=== PATIENT | male | born 1955 | race Caucasian/White ===

== ENCOUNTER 2020-10-13 12:50 | Emergency (ER) | payer MEDICAID, MEDICARE ==
[~2020-10-13] VITALS: Ht 172.7 cm; Wt 101.0 kg
--- NOTE | 2020-10-13 12:52 | NUR ---
patient bib ems found on side of [address] by [place] stating suicidal and has a history of si. patient apparently arrived to [facility] 6 hours ago. he does admit to si. belongings removed, locked in safe including large suitcase. patient cooperative.
--- NOTE | 2020-10-13 13:07 | NUR ---
was told by ems he takes seroquel but is not taking it secondary to cant afford it.
--- NOTE | 2020-10-13 14:02 | NUR ---
got patient lunch. joann visiting patient
[2020-10-13 14:49] VITALS: BP 132/88
--- NOTE | 2020-10-13 14:50 | NUR ---
got patient voucher for taxi to [facility], returned belongings, and discharge teaching to go to [facility].
== END 2020-10-13 14:59 | disposition home or self-care (01) ==
LOC: ED 14:29
DX: R45.851 Suicidal ideations (principal); Z72.9 Problem related to lifestyle, unspecified; I10 Essential (primary) hypertension; Z91.14 Patient's other noncompliance with medication regimen
CPT/HCPCS: 99284

== ENCOUNTER 2020-10-13 16:09 | Emergency (ER) | payer MEDICARE ==
[~2020-10-13] VITALS: Ht 172.7 cm; Wt 96.1 kg
[2020-10-13 16:11] VITALS: BP 98/72
--- NOTE | 2020-10-13 16:40 | NUR ---
pt eloped without dc papers.
== END 2020-10-13 16:41 | disposition left against medical advice (07) ==
LOC: ED 16:15
DX: R45.851 Suicidal ideations (principal); I10 Essential (primary) hypertension
CPT/HCPCS: 99281